=== PATIENT | female | born 1975 | race Two or more races ===

== ENCOUNTER 2023-05-03 08:51 | Emergency (ER) | payer OTHER ==
[~2023-05-03] VITALS: Ht 157.5 cm; Wt 63.5 kg
[2023-05-03 10:21] LABS: HEMATOCRIT 38.2 % (36.0-45.00); MEAN CELL VOLUME 86.2 fL (80.00-100.00); MEAN CORPUSCULAR HEMOGLOBIN 29.4 pg (27.00-32.0); MEAN CORPUSCULAR HGB CONC 34.1 g/dl (32.0-36.0); PLATELET COUNT 226 K/uL (150-450); RED BLOOD COUNT 4.43 M/uL (4.00-6.00); RED CELL DISTRIBUTION WIDTH 14.1 % (11.5-14.5)
[2023-05-03] MEDS ORDERED: TUSNEL LIQUID178 ML PO (11:36)
[2023-05-03] MEDS ORDERED: ZITHROMAX500 MG PO (11:36)
== END 2023-05-03 11:54 | disposition home or self-care (01) ==
LOC: ER 08:52
PROVIDERS: General Practice
DX: R51.9 Headache, unspecified (principal); R05.9 Cough, unspecified; Z88.2 Allergy status to sulfonamides; Z20.822 Contact with and (suspected) exposure to COVID-19